=== PATIENT | female | born 1960 | race Caucasian/White ===

== ENCOUNTER 2019-06-06 12:05 | Day surgery (SDC) | payer BC, OTHER ==
[2019-06-04 16:50] VITALS: BMI 39.2
[~2019-06-06 12:05] MED LIST: ACETAMINOPHEN 325 MG TABLET (FP) PO PRN; BISACODYL 5 MG TABLET.DR (FP) PO PRN; BUPIVACAINE HCL/PF 0.5% (5MG/ML) 10 ML VIAL IJ ONE; CEFAZOLIN 2 GM/D5W 2 GM/50 ML ML IVPB ONE; DESFLURANE GAS 240 ML BOTTLE IH ONE; DEXAMETHASONE SOD PHOSPHATE 4 MG/1 ML VIAL ONE; DOCUSATE SODIUM 100 MG CAPSULE (FP) PO PRN; GLYCOPYRROLATE 0.2 MG/1 ML VIAL ONE; IBUPROFEN 800 MG/8 ML IJ IVPB PRN; MIDAZOLAM HCL 2 MG/2 ML SINGLE DOSE VIAL ONE; NEOSTIGMINE METHYLSULFATE 0.5 MG/ML - 10 ML MDV ONE; ONDANSETRON 4 MG/2 ML VIAL IVPUSH PRN; PHENAZOPYRIDINE HCL 100 MG TABLET (FP) PO ONE; PROPOFOL 20 ML ONE; SIMETHICONE 80 MG TAB.CHEW (FP) PO PRN; ceFAZolin SODIUM 1 GM VIAL IVPB ONE; ceFAZolin SODIUM 1 GM VIAL ONE; fentaNYL CITRATE 250 MCG/5 ML VIAL ONE; oxyCODONE HCL 5 MG TABLET PO PRN
--- NOTE | 2019-06-06 12:17 | OP ---
<Ezequiel Vasquez - Last Filed: 06/06/19 12:14> Operative Note - Note: Operative Date: 06/06/19 Pre-Operative Diagnosis: Fibroid uterus Operation: Robotic assisted hysterectomy and bilateral salpingectomy Post-Operative Diagnosis: Same as Pre-op Surgeon: Caro Matt Keyboarding Teacher: Ezequiel Vasquez Anesthesiologist/MOLD TOOLING TECHNICIAN: Jorden Oshea Anesthesia: General Operative Report Dictated: Yes <Caro Matt - Last Filed: 06/07/19 08:00> Operative Note - Note: Operation: Robotic laparascopic Total HYsterectomy. Bilateral salpingectomy Estimated Blood Loss (mls): 25
--- NOTE | 2019-06-06 12:19 | SURG ---
Surgery Director Of Corporate Strategy Note Director Of Corporate Strategy: Ezequiel Vasquez PA-C Date of Service: 06/06/19 Diagnosis: Fibroid uterus Procedure: Robotic assisted hysterectomy and bilateral salpingectomy I was present for the entirety of the operative procedure. For further detail, please refer to operative report. Visit type - Case Type Case Type: Scheduled - Emergency Emergency Visit: No - New patient This patient is new to me today: Yes Date on this admission: 06/06/19 - Critical Care Critical Care patient: No
[2019-06-06] MEDS: CEFAZOLIN 1 GM/D5W 1 GM/50 ML BAG IVPB SCH (17:18)
[2019-06-06 19:24] LABS: MCH 28.6 pg (25.7-33.7); MCHC 33.3 g/dl (32.0-36.0); MEAN PLT VOLUME 8.6 fl (7.5-11.1); PLATELET COUNT 244 K/MM3 (134-434); RBC 4.53 M/mm3 (3.60-5.2); RDW 13.5 % (11.6-15.6); WHITE BLOOD COUNT 7.6 K/mm3 (4.0-10.0)
[2019-06-06 20:00] LABS: BLOOD UREA NITROGEN 14.8 mg/dL (7-18); CALCIUM 9.4 mg/dL (8.5-10.1); CREATININE 0.8 mg/dL (0.55-1.3); POTASSIUM 3.6 mmol/L (3.5-5.1)
[2019-06-07] MEDS: CEFAZOLIN 1 GM/D5W 1 GM/50 ML BAG IVPB SCH ×2 (02:17→09:15)
--- NOTE | 2019-06-07 07:52 | PN ---
Progress Note (short form) - Note Progress Note: 59yo F s/p Robotic hysterectomy POD 1, pt seen and examined at the bedside. Pt denies fever, chills, n/v, cp. Pt states abd pain is well controlled. Pt tolerating PO. Devlin will be removed this AM. Last Vital Signs Temp Pulse Resp BP Pulse Ox 98.1 F 64 17 99/57 L 99 06/07/19 06:00 06/07/19 06:00 06/07/19 06:00 06/07/19 06:00 06/06/19 16:36 CBC, BMP 06/06/19 18:30 06/06/19 18:30 PE: Gen: A&O x3 Resp: breathing comfortably Abd; soft, nondistended, mild tenderness, incisions clean, no erythema or discharge Ext: no edema Problem List - Problems (1) Fibroid uterus Assessment/Plan: Plan -dc devlin this am, trial of void, regular diet, if no issues pt will be discharged after breakfast. -pt follow up with Dr. Matt next week in the office. Case discussed with Dr. Matt who agrees with plan Code(s): D25.9 - LEIOMYOMA OF UTERUS, UNSPECIFIED
[2019-06-07 08:20] LABS: HEMATOCRIT 34.8 % (32.4-45.2); HEMOGLOBIN 11.8 GM/dL (10.7-15.3); MCH 29.1 pg (25.7-33.7); MCHC 33.8 g/dl (32.0-36.0); MEAN CELL VOLUME 86.1 fl (80-96); MEAN PLT VOLUME 8.4 fl (7.5-11.1); PLATELET COUNT 219 K/MM3 (134-434); RBC 4.04 M/mm3 (3.60-5.2); RDW 13.2 % (11.6-15.6)
[2019-06-07 08:44] LABS: BLOOD UREA NITROGEN 14.6 mg/dL (7-18); CREATININE 0.8 mg/dL (0.55-1.3); POTASSIUM 3.5 mmol/L (3.5-5.1)
[2019-06-07] MEDS ORDERED: LEVOTHYROXINE NA 75 MCG TABLET (FP) PO SCH (08:45)
[2019-06-07] MEDS ORDERED: FLU VACC QS2019-20(6MOS UP)/PF 60 MCG/0.5 ML SYRINGE IM ONE (09:00)
[2019-06-07] MEDS ORDERED: ENOXAPARIN NA (PORCINE) 40 MG/0.4 ML DISP.SYRIN SQ SCH (10:00)
[2019-06-07] MEDS ORDERED: FLU VACCINE QUAD 60 MCG/0.5 ML (MDV 19-20) IM ONE (10:00)
[2019-06-07] MEDS ORDERED: CHLORTHALIDONE 25 MG TABLET PO SCH (10:00)
--- NOTE | 2019-06-07 10:18 | OP ---
DATE OF OPERATION: 06/06/2019 PREOPERATIVE DIAGNOSIS: Leiomyomatous uterus, pelvic pain. SURGERY: Laparoscopic robotic total abdominal hysterectomy and bilateral salpingectomy. SURGEON: Sanket Matt MD WET WASHER MACHINE: CHRISTIANO ANESTHESIA: General. DESCRIPTION OF PROCEDURE: Patient was taken to the operating room. Placed in dorsal lithotomy position. Prepped and draped in the usual sterile fashion. Time-out was performed in accordance with hospital regulation. Speculum was placed in the vagina. Anterior lip of the cervix was grasped with a single-tooth tenaculum. Cervix was then dilated to accommodate the small uterine manipulator. Manipulator was then inserted covering the cervix. Attention was then drawn to the umbilicus where an 8-mm umbilical incision was made. Veress needle was inserted into the cavity. Approximately 3-4 L of CO2 was insufflated in the cavity. Veress needle was then removed, and an 8-mm trocar was then inserted. Laparoscope and camera attached. Visualization revealed a 14-week leiomyomatous uterus, normal tubes and ovaries. Attention was then drawn to placing 2 ports on the left side 10 mm apart from the umbilical incision. Scalpel was then used to make an 8-mm incision. Trocar was then inserted under direct visualization, and left upper abdomen incision was made 5 mm, and the AirSeal cannula was then inserted with direct visualization. The same procedure was repeated on the right side, 10 mm apart incisions were placed. Under direct visualization, the scalpel was used to make an 8-mm skin incision. After patient was placed in steep Trendelenburg and da Gabby robot was side docked. The patient's arms and trocars were then inserted onto the da Gabby robot. Placement was confirmed. Gripping of all trocars was then done. Instruments were then placed. Tenaculum was placed in arm 4, Endo Rachana in arm 3, and the vessel sealer in arm 1. After our instruments were placed anterior to the uterus, attention was then drawn to control of the console. Tenaculum was then used to elevate the uterus to the right side where the utero-ovarian ligament was identified, clamped, and cut. Cardinal ligament and uterine artery was identified and clamped and cut down to the level of the cervix. Vesicouterine reflection was then entered, and the bladder was bluntly dissected out of the operative field. Scalpel was then used to enter the vagina, and uterine manipulator was then seen. Ureters on the left side were identified and found to have peristalsis. Same procedure was repeated on the right side. The uterus was elevated and tilted to the left side, and utero-ovarian ligament was identified and clamped and cut. Round ligament was identified, clamped, and cut. Uterine artery was identified, clamped, and cut. All of the uterine vessels were identified and clamped and cut as the bladder had been bluntly dissected out of the operative field. Endo Rachana were then used to cut the vagina away from the uterus. Uterus was then exteriorized after myoma had to be removed from the uterus to get the uterus out of the vagina. A 2-row V-Lock suture was then introduced into the abdomen cavity, and the vaginal cuff was then closed using 2-0 V-Lock in a continuous fashion. Ureters were then identified and found to have peristalsis. Irritation was done. The needle was then removed out of abdomen and submitted. Tubes had been bilaterally cut with the vessel sealer and was also removed from the vagina. Hemostasis was achieved. All instruments were then removed. CO2 was removed from the abdomen. Trocars were then removed. Incisions were then closed using 3-0 Biosyn suture in a subcuticular fashion. Wound was washed and dressed. The patient tolerated the procedure well and was then taken to the recovery room in stable condition. Estimated blood loss was approximately 25 mL. SANKET MATT M.D. [id number]
[2019-06-07 13:02] VITALS: BP 114/60; PULSE 71; TEMP 98.4
--- NOTE | 2019-06-10 13:42 | PATH ---
Surgical Pathology Report Patient Name: CONSTANZA ESTRADA [facility]. Rec. #: [id number] /Age/Gender: 1960 (Age: 59) / F Account: [id number] Location: AMBULATORY SURG Taken: 06/06/2019 Received: 06/06/2019 Reported: 06/10/2019 Physicians: Caro Matt M.D. Specimen(s) Received A: UTERUS AND CERVIX B: RIGHT FALLOPIAN TUBE C: LEFT FALLOPIAN TUBE Clinical History Intramural leiomyoma of uterus Final Diagnosis A. UTERUS AND CERVIX, HYSTERECTOMY: LEIOMYOMAS WITH FOCAL HYALINIZATION. ENDOMETRIAL POLYP. ADENOMYOSIS. WEAKLY PROLIFERATIVE ENDOMETRIUM. CERVIX WITH NABOTHIAN CYSTS. B. RIGHT FALLOPIAN TUBE, EXCISION: PORTION OF BENIGN SMOOTH MUSCLE. NO FALLOPIAN TUBE PRESENT. C. LEFT FALLOPIAN TUBE, EXCISION: PORTION OF FALLOPIAN TUBE WITH PARATUBAL CYSTS. Electronically Signed Kory Spence M.D. Gross Description A. Received in formalin labeled "uterus and cervix," are 3 portions of cervix, uterus, and separate nodular tissue weighing 298 g. No tubes or ovaries present. The detached cervix measures 5.5cm in length and averages 2.3cm in diameter. The ectocervix is raymond-pink, smooth and glistening. The endocervix is unremarkable. The uterus measures 7.5 cm from superior to inferior, 5.5 cm from anterior to posterior, and 4.0 cm from left to right. The serosa is disrupted. The endometrial cavity measures 5 cm in length and 3 cm from cornu to cornu. The endometrium is raymond-red and measures up to 0.2 cm in thickness. A polyp with smooth surface measuring 1.7 cm in greatest dimension is present. Focal slightly thickened endometrium with smooth surface noted. One submucosal mass measuring 2.5 cm dimension identified. The myometrium displays one intramural nodule measuring 4.3 cm dimension is present. Separate nodular tissue shows 3 nodular lesions ranging from 1.3 to 6.0 cm in greatest dimension with focal serosa surface present. The cut surface of the nodules is raymond and rubbery with whorled architecture. No necrosis, discoloration, or hemorrhage present. The remaining myometrium is raymond-pink and measures up to 2.0 cm in thickness. Sample Puller sections are submitted in 15 cassettes as follows: 1-2: anterior cervix; 3-4- posterior cervix; 5. Thickened area of endometrium .6: Polyp with endometrium; 3-7-walpumvbt endomyometrium; 9.submucosa nodule 10-11- intramural nodule 12-14 separate largest nodule 15 smaller nodules. B. Received in formalin labelled "right fallopian tube" is a portion of irregular soft tissue measuring 2.0 x 1.0 x 1.0 cm. No tubal structure identified. Serial sections reveal solid cut raymond surfaces. The specimen is totally submitted in one cassette. C. Received in formalin labelled "left fallopian tube" is a 2.0 cm long by 0.5 cm in diameter portion of tissue consistent with a portion of fallopian tube. The fimbriated end is identified. Multiple paratubal cysts measuring up to 0.5cm in greatest dimension are present. Sectioned and entirely submitted in two cassettes. JUJU/06/06/2019 destiny06/06/2019
== END 2019-06-07 15:45 | disposition home or self-care (01) ==
LOC: JASUSAT 12:05 → J3W 14:34 → JASUSAT 06-07 15:45
PROVIDERS: ATTEND Obstetrics & Gynecology
PROC: 8E0W8CZ Robotic Assisted Procedure of Trunk Region, Via Natural or Artificial Opening Endoscopic (ICD-10-PCS; 2019-06-06)
PROC: 0UT9FZZ Resection of Uterus, Via Natural or Artificial Opening With Percutaneous Endoscopic Assistance (ICD-10-PCS; principal; 2019-06-06 09:00)
PROC: 0UT7FZZ Resection of Bilateral Fallopian Tubes, Via Natural or Artificial Opening With Percutaneous Endoscopic Assistance (ICD-10-PCS; 2019-06-06 09:00)
DX: D25.9 Leiomyoma of uterus, unspecified (principal); N80.0 Endometriosis of uterus; N83.8 Other noninflammatory disorders of ovary, fallopian tube and broad ligament
CPT/HCPCS: 58554; S2900; 36415; 80048; 85027; 86850; 86900; 86901; 88302-TC; 88307-TC; 90686; 94760